=== PATIENT | male | born 1985 | race Hispanic/Latino ===

== ENCOUNTER 2017-04-02 21:42 | Emergency (ER) | payer OTHER ==
[~2017-04-02] VITALS: Ht 175.3 cm; Wt 90.7 kg
[~2017-04-02 21:42] MED LIST: BENTYL20 MG PO; SEROQUEL25 MG PO
--- NOTE | 2017-04-03 20:39 | EKG ---
[facility] [address] [facility] [place] [address] Signed Sinus tachycardia Otherwise normal ECG No previous ECGs available Confirmed by DANIEL MARSH MD ([id number]) on 04/03/2017 8:38:52 PM Electronically Signed By: DANIEL MARSH MD 04/03/17 2039 PATIENT NAME: DEMOND HURTADO Electrocardiogram DATE OF : 89 PHYSICIAN: DANIEL MARSH MD REPORT #: [id number] REPORT IS CONFIDENTIAL AND NOT TO BE RELEASED WITHOUT AUTHORIZATION
== END 2017-04-03 00:07 | disposition home or self-care (01) ==
LOC: ED 21:42
DX: R07.9 Chest pain, unspecified (principal); F31.9 Bipolar disorder, unspecified; Z87.891 Personal history of nicotine dependence; Z88.0 Allergy status to penicillin; Z79.899 Other long term (current) drug therapy
CPT/HCPCS: 93005; 93010; 99283

== ENCOUNTER 2017-04-21 23:48 | Emergency (ER) | payer OTHER ==
[~2017-04-21] VITALS: Ht 175.3 cm; Wt 89.4 kg
== END 2017-04-22 00:12 | disposition home or self-care (01) ==
LOC: ED 23:48
DX: R06.00 Dyspnea, unspecified (principal); F19.10 Other psychoactive substance abuse, uncomplicated; F31.9 Bipolar disorder, unspecified; F32.9 Major depressive disorder, single episode, unspecified; Z88.0 Allergy status to penicillin; Z79.899 Other long term (current) drug therapy
CPT/HCPCS: 99283

== ENCOUNTER 2017-04-28 23:25 | Emergency (ER) | payer OTHER ==
[~2017-04-28] VITALS: Ht 175.3 cm; Wt 89.4 kg
--- NOTE | 2017-04-29 13:55 | EKG ---
[facility] [address] [facility] [place], [place] [address] Signed Sinus tachycardia Otherwise normal ECG When compared with ECG of 27-APR-2017 22:14, No significant change was found Confirmed by DANIEL MARSH MD ([id number] on 04/29/2017 1:55:42 PM Electronically Signed By: DANIEL MARSH MD 04/29/17 1355 PATIENT NAME: BRYANTDEMONDMENDEL COPPOLA Electrocardiogram DATE OF : 89 PHYSICIAN: DANIEL MARSH MD REPORT #: [id number] REPORT IS CONFIDENTIAL AND NOT TO BE RELEASED WITHOUT AUTHORIZATION
== END 2017-04-28 23:53 | disposition home or self-care (01) ==
LOC: ED 23:25
DX: R07.89 Other chest pain (principal); F31.9 Bipolar disorder, unspecified; Z88.0 Allergy status to penicillin; Z88.5 Allergy status to narcotic agent; Z79.899 Other long term (current) drug therapy
CPT/HCPCS: 93005; 93010; 99283

== ENCOUNTER 2017-04-29 16:07 | Emergency (ER) | payer OTHER ==
[~2017-04-29] VITALS: Ht 175.3 cm; Wt 89.4 kg
== END 2017-04-29 16:54 | disposition home or self-care (01) ==
LOC: ED 16:07
DX: R06.2 Wheezing (principal); Z71.1 Person with feared health complaint in whom no diagnosis is made; F31.9 Bipolar disorder, unspecified; F32.9 Major depressive disorder, single episode, unspecified; Z88.0 Allergy status to penicillin; Z88.5 Allergy status to narcotic agent; Z79.899 Other long term (current) drug therapy
CPT/HCPCS: 99283